=== PATIENT | male | born 1965 | race Hispanic/Latino ===

== ENCOUNTER 2021-08-28 09:01 | Emergency (ER) | payer OTHER ==
[~2021-08-28] VITALS: Ht 167.6 cm; Wt 82.0 kg
[~2021-08-28 09:01] MED LIST: FLEXERIL10 MG PO; LORTAB 5 OR; NAPROXEN500 MG PO; NO HOME MEDS
[2021-08-28] MEDS ORDERED: NAPROXEN500 MG PO (10:56)
[2021-08-28 11:25] VITALS: BP 139/75
== END 2021-08-28 11:25 | disposition home or self-care (01) | DRG 605 ==
LOC: ED 09:01
DX: S70.12XA Contusion of left thigh, initial encounter (principal); W11.XXXA Fall on and from ladder, initial encounter; Y92.89 Other specified places as the place of occurrence of the external cause; Y99.0 Civilian activity done for income or pay

== ENCOUNTER 2024-12-02 19:26 | Emergency (ER) | payer SELFPAY ==
[~2024-12-02] VITALS: Ht 172.7 cm; Wt 78.0 kg
[~2024-12-02 19:26] MED LIST changes: +METFORMIN HCL1000 MG PO; +PIOGLITAZONE HC30 MG; +SIMVASTATIN20 M1
[2024-12-02 19:34] VITALS: BP 135/77
[2024-12-02] MEDS ORDERED: Diph, Acellular Pertussis, Tet 0.5 ML/VIAL (Tdap) SDV IM ONE (19:35)
[2024-12-02] MEDS ORDERED: KEFLEX500 MG PO (19:50)
[2024-12-02] MEDS ORDERED: NEOMYCIN-BACITRACIN-POLYMYXIN 0.5 GM/PAK PAK TOP ONE (19:50)
[2024-12-02 20:17] VITALS: BP 130/80
== END 2024-12-02 20:14 | disposition home or self-care (01) | DRG 605 ==
LOC: ED 19:26
PROC: 0HQFXZZ Repair Right Hand Skin, External Approach (ICD-10-PCS; principal; 2024-12-02)
DX: S61.210A Laceration without foreign body of right index finger without damage to nail, initial encounter (principal); W45.8XXA Other foreign body or object entering through skin, initial encounter; Y92.72 Chicken coop as the place of occurrence of the external cause
CPT/HCPCS: 90715

== ENCOUNTER 2024-12-10 19:52 | Emergency (ER) | payer SELFPAY ==
[~2024-12-10 19:52] MED LIST changes: +KEFLEX500 MG PO
== END 2024-12-10 20:20 | disposition left against medical advice (07) | DRG 951 ==
LOC: ED 20:20 → LWOBS 20:20
DX: Z53.21 Procedure and treatment not carried out due to patient leaving prior to being seen by health care provider (principal)